=== PATIENT | male | born 1945 | race Caucasian/White ===

== ENCOUNTER → 2017-07-12 | Day surgery (SDC) | payer OTHER ==
[~2017-07-12] VITALS: Ht 177.8 cm; Wt 88.5 kg
[~2017-07-12] MED LIST: B-COMPLEX1 CAP PO; BAYER ASPIRIN R81 MG PO; BENAZEPRIL10 MG PO; CIPRO500 MG PO; DIPYRIDAMOLE50 MG PO; FISH OIL 10001000 MG PO; METFORMIN500 MG PO; OXYCODONE5 MG; PREDNISONE5 MG PO; SIMVASTATIN40 MG PO; VERAPAMIL HCL80 MG PO; VICODIN 5/500 505 MG PO
--- NOTE | ~2017-07-12 | O ---
[place], [place] OPERATIVE NOTE NAME: ADRI CHRISTY UNIT #: [id number] ROOM: DOCTOR: DANIEL THRASHER MD BIRTHDATE: [birth year] DOS: 07/12/2017 GASTROENDOSCOPIC REPORT. HISTORY OF PRESENT ILLNESS: A 72-year-old patient who has presented with chief complaint of colonic screening, undergoing investigation. Change in bowel habit, diarrhea. ALLERGIES: No known medication. FAMILY HISTORY: Noncontributory. PAST SURGICAL HISTORY: Lithotripsy, cardiac stent and abdominal aortic aneurysm. PAST MEDICAL HISTORY: Hypertension, diabetes, hypercholesterolemia, seizure. SOCIAL HISTORY: Nonsmoker, nonalcohol consumer. PROCEDURE: Todays' procedure part of investigation is colonoscopy plus snare polypectomy x 4. PREMEDICATION: Versed and Diprivan. SCOPE: Olympus folding colonoscope 10L video. REPORT: After putting the patient in the left lateral position and after application of lubricant to rectal pouch and digital examination, scope was introduced. Thereafter, under direct visualization, I advanced through the length of colon without difficulty. Two polypoid lesions from rectal pouch with snare were polypectomized. Two other polypoid lesions from proximal sigmoid colon were polypectomized with snare. Base of the cecum explored, appendiceal orifice identified, and ileocecal valve was defined. Diverticulosis was noticed. The patient extubated, tolerated procedure well. IMPRESSION: Diverticulosis of sigmoid colon, 2 polyps, snare polypectomy at proximal sigmoid colon; 2 polyps, rectal pouch, status post 2 snare polypectomy and rectal pouch. PLAN AND DISCUSSION: High fiber diet. ACTIVITY: Ad willow. FOLLOWUP: Routinely with you in office, p.r.n. visit with us in GI Clinic. Thank you very much again for your kind referral. [place], [place] OPERATIVE NOTE NAME: ADRI CHRISTY UNIT #: [id number] ROOM: DOCTOR: DANIEL THRASHER MD BIRTHDATE: [birth year] DANIEL THRASHER MD CM:OPRECORD:OPERATIVE NOTE 1120 1157 DANIEL THRASHER MD 07/12/17 1152 interface
[2017-07-12 10:37] VITALS: BP 132/51
[2017-07-12 11:14] VITALS: BP 78/49
[2017-07-12 11:29] VITALS: BP 84/42
[2017-07-12 11:44] VITALS: BP 104/56
== END | disposition home or self-care (01) ==
LOC: SDC 07-08 08:00
DX: D12.5 Benign neoplasm of sigmoid colon (principal); D12.8 Benign neoplasm of rectum; I10 Essential (primary) hypertension; E11.9 Type 2 diabetes mellitus without complications; E78.00 Pure hypercholesterolemia, unspecified; Z95.5 Presence of coronary angioplasty implant and graft; Z79.899 Other long term (current) drug therapy; I25.2 Old myocardial infarction; Z86.14 Personal history of Methicillin resistant Staphylococcus aureus infection; I72.9 Aneurysm of unspecified site; Z87.891 Personal history of nicotine dependence; Z98.890 Other specified postprocedural states; Z83.3 Family history of diabetes mellitus; Z82.49 Family history of ischemic heart disease and other diseases of the circulatory system

== ENCOUNTER → 2017-07-23 | Outpatient (CLI) | payer OTHER | END | disposition home or self-care (01) | LOC: LAB 11:43 → CT 13:00 | PROVIDERS: Internal Medicine | DX: M54.18 Radiculopathy, sacral and sacrococcygeal region (principal) ==

== ENCOUNTER → 2017-07-26 | Outpatient (CLI) | payer OTHER | END | disposition home or self-care (01) | LOC: CT 07-25 01:08 | DX: I72.3 Aneurysm of iliac artery (principal); N20.2 Calculus of kidney with calculus of ureter; M54.18 Radiculopathy, sacral and sacrococcygeal region; K80.20 Calculus of gallbladder without cholecystitis without obstruction; N28.1 Cyst of kidney, acquired; K57.30 Diverticulosis of large intestine without perforation or abscess without bleeding; K42.9 Umbilical hernia without obstruction or gangrene ==

== ENCOUNTER → 2018-04-02 | Day surgery (SDC) | payer OTHER ==
[~2018-04-02] VITALS: Ht 177.8 cm; Wt 88.5 kg
[~2018-04-02] MED LIST changes: +VITAMIN B 6 PO; +VITAMIN D-32000 UNI1 PO
--- NOTE | ~2018-04-02 | O ---
[place], [place] O[facility]ATIVE [id number] UNIT #: [id number] ROOM: DOCTOR: PEARL BAILON MD BIRTHDATE: [birth year] DOS: 04/02/2018 PREOPERATIVE DIAGNOSIS: Cataract, left eye. POSTOPERATIVE DIAGNOSIS: Cataract, left eye. OPERATION: Extracapsular cataract extraction by phacoemulsification with posterior chamber intraocular lens implantation, left eye. ANESTHESIA: Monitored standby. OPERATIVE FINDINGS AND PROCEDURE: 2% Xylocaine topical anesthetic gel was applied to the eye in the preop area. The patient was taken to the operating room and prepped and draped in the standard fashion for sterile intraocular surgery. A time out procedure was performed verifying correct patient, correct site and corrects lens with Pancho Bailon M.D. The operating microscope was swung into position and the lid speculum was inserted. Using a Yamile paracentesis blade, a paracentesis was made through clear cornea. Viscoelastic was used to fill the anterior chamber. Using a metal keratome a 2.4 mm self-sealing clear corneal cataract incision was made temporally at the limbus. Using a pre-bent 25 gauge cystotome needle, a standard continuous curvilinear capsulorrhexis was performed. The anterior capsule was removed with forceps. The lens nucleus was hydrodissected and phacoemulsified in the posterior chamber. Cortical material was removed with the irrigation aspiration hand piece and the posterior capsule was then polished with a curet under irrigation. The posterior chamber and capsular bag were filled with viscoelastic. A posterior chamber intraocular lens manufactured by: [employer], Model #[id number], and 18.0 diopters in strength were then inserted into the posterior chamber and within the capsular bag using the lens cartridge and injector system. Viscoelastic was removed using the irrigation aspiration handpiece. The anterior chamber was filled with balanced salt solution through the paracentesis. Both the paracentesis site and cataract incisions were hydrated with BSS and verified to be water-tight and self-sealing. Cefuroxime 1 mg/0.1 mL was injected into the anterior chamber through the paracentesis site. The incision checked to be water-tight using a Weck-Glory sponge. The integrity of the cataract wound and ocular tension were checked. Lid speculum and drapes were removed. The patient was transferred from the operating room to the recovery room in satisfactory condition. [place], [place] OPERATIVE NOTE NAME: ADRI CHRISTY UNIT #: [id number] ROOM: DOCTOR: PEARL BAILON MD BIRTHDATE: [birth year] PEARL BAILON MD CM:OPRECORD:OPERATIVE NOTE 1115 1139 PEARL BAILON MD 04/02/18 1137 interface
[2018-04-02 10:29] VITALS: BP 128/67
[2018-04-02 11:10] VITALS: BP 125/53
[2018-04-02 11:20] VITALS: BP 106/52
[2018-04-02 11:33] VITALS: BP 115/52
== END | disposition home or self-care (01) ==
LOC: SDC 03-28 14:00
DX: H25.812 Combined forms of age-related cataract, left eye (principal); I10 Essential (primary) hypertension; E78.00 Pure hypercholesterolemia, unspecified; Z87.442 Personal history of urinary calculi; Z86.14 Personal history of Methicillin resistant Staphylococcus aureus infection; Z98.890 Other specified postprocedural states; Z82.49 Family history of ischemic heart disease and other diseases of the circulatory system; Z87.891 Personal history of nicotine dependence

== ENCOUNTER → 2018-04-08 | Outpatient (CLI) | payer OTHER | END | disposition home or self-care (01) | LOC: US 09:00 | DX: N20.0 Calculus of kidney (principal); N18.3 Chronic kidney disease, stage 3 (moderate) ==

== ENCOUNTER → 2018-04-09 | Day surgery (SDC) | payer OTHER ==
[~2018-04-09] VITALS: Ht 177.8 cm; Wt 88.5 kg
--- NOTE | ~2018-04-09 | O ---
[place], [place] OPERATIVE NOTE NAME: ADRI CHRISTY [facility] #: [id number] UNIT #: [id number] ROOM: DOCTOR: PEARL BAILON MD BIRTHDATE: [birth year] DOS: 04/09/2018 PREOPERATIVE DIAGNOSIS: Cataract, right eye. POSTOPERATIVE DIAGNOSIS: Cataract, right eye. OPERATION: Extracapsular cataract extraction by phacoemulsification with posterior chamber intraocular lens implantation, right eye. ANESTHESIA: Monitored standby. OPERATIVE FINDINGS AND PROCEDURE: 2% Xylocaine topical anesthetic gel was applied to the eye in the preop area. The patient was taken to the operating room and prepped and draped in the standard fashion for sterile intraocular surgery. A time out procedure was performed verifying correct patient, correct site and corrects lens with Pancho Bailon M.D. The operating microscope was swung into position and the lid speculum was inserted. Using a Yamile paracentesis blade, a paracentesis was made through clear cornea. Viscoelastic was used to fill the anterior chamber. Using a metal keratome a 2.4 mm self-sealing clear corneal cataract incision was made temporally at the limbus. Using a pre-bent 25 gauge cystotome needle, a standard continuous curvilinear capsulorrhexis was performed. The anterior capsule was removed with forceps. The lens nucleus was hydrodissected and phacoemulsified in the posterior chamber. Cortical material was removed with the irrigation aspiration hand piece and the posterior capsule was then polished with a curet under irrigation. The posterior chamber and capsular bag were filled with viscoelastic. A posterior chamber intraocular lens manufactured by: [employer], Model #[id number], and 18.5 diopters in strength were then inserted into the posterior chamber and within the capsular bag using the lens cartridge and injector system. Viscoelastic was removed using the irrigation aspiration handpiece. The anterior chamber was filled with balanced salt solution through the paracentesis. Both the paracentesis site and cataract incisions were hydrated with BSS and verified to be water-tight and self-sealing. Cefuroxime 1 mg/0.1 mL was injected into the anterior chamber through the paracentesis site. The incision checked to be water-tight using a Weck-Glory sponge. The integrity of the cataract wound and ocular tension were checked. Lid speculum and drapes were removed. The patient was transferred from the operating room to the recovery room in satisfactory condition. [place], [place] OPERATIVE NOTE NAME: ADRI CHRISTY UNIT #: [id number] ROOM: DOCTOR: PEARL BAILON MD BIRTHDATE: [birth year] PEARL BAILON MD CM:OPRECORD:OPERATIVE NOTE 1203 1218 PEARL BAILON MD 04/09/18 1216 interface
[2018-04-09 09:46] VITALS: BP 124/56
[2018-04-09 10:47] VITALS: BP 97/58
[2018-04-09 11:02] VITALS: BP 96/55
[2018-04-09 11:17] VITALS: BP 117/47
== END | disposition home or self-care (01) ==
LOC: SDC 04-07 11:45
DX: E11.36 Type 2 diabetes mellitus with diabetic cataract (principal); H25.811 Combined forms of age-related cataract, right eye; I10 Essential (primary) hypertension; E78.00 Pure hypercholesterolemia, unspecified; I25.2 Old myocardial infarction; Z87.891 Personal history of nicotine dependence; Z98.890 Other specified postprocedural states; Z79.899 Other long term (current) drug therapy; Z95.5 Presence of coronary angioplasty implant and graft; Z87.442 Personal history of urinary calculi; Z83.3 Family history of diabetes mellitus; Z82.3 Family history of stroke; Z82.49 Family history of ischemic heart disease and other diseases of the circulatory system

== ENCOUNTER → 2018-05-12 | Outpatient (CLI) | payer OTHER ==
[2018-05-12 13:03] LABS: BILIRUBIN NEGATIVE (NEGATIVE); BLOOD 3+ (NEGATIVE); CLARITY CLOUDY (CLEAR); COLOR YELLOW (YELLOW); GLUCOSE NEGATIVE (NEGATIVE); KETONE NEGATIVE (NEGATIVE); LEUKO ESTERASE TRACE (NEGATIVE); NITRITE NEGATIVE (NEGATIVE); SPECIFIC GRAVITY 1.025 (1.005-1.030); UROBILINOGEN 0.2 E.U./dl (0.2-1.0)
[2018-05-12 13:13] LABS: BASO # 0.1 10*3/uL (0.0-0.1); EOS # 0.4 10*3/uL (0.0-0.4); EOS % 5.9 % (1.0-4.0); HEMATOCRIT 38.8 % (42.0-52.0); HEMOGLOBIN 12.2 g/dl (14.0-18.0); LYMPH # 1.7 10*3/uL (1.3-4.4); MEAN CELL VOLUME 103.2 fl (80.0-94.0); MEAN CORPUSCULAR HGB 32.4 pg (27.0-31.0); MEAN CORPUSCULAR HGB CONC 31.4 g/dl (33.0-37.0); MEAN PLATELET VOLUME 10.2 fl (9.6-12.3); MONO # 0.6 10*3/uL (0.1-1.0); MONO % 9.7 % (3.0-9.0); NEUT # 3.3 10*3/uL (2.3-7.9); NEUT % 54.9 % (47.0-73.0); PLATELET COUNT AUTOMATED 197 10*3/uL (130-400); RED BLOOD COUNT 3.76 10*6/uL (4.50-5.90); RED CELL DISTRI WIDTH 14.6 % (0-14.5); WHITE BLOOD COUNT 6.1 10*3/uL (4.8-10.8)
[2018-05-12 13:16] LABS: RBC TNTC rbc/hpf (0-2)
[2018-05-12 13:43] LABS: CREATININE 3.18 mg/dL (0.70-1.30); POTASSIUM 5.7 mmol/L (3.5-5.1); TOTAL PROTEIN 8.5 gm/dL (6.4-8.2)
== END | disposition home or self-care (01) ==
LOC: LAB 12:28
PROVIDERS: Urology
DX: N40.1 Benign prostatic hyperplasia with lower urinary tract symptoms (principal); D40.0 Neoplasm of uncertain behavior of prostate; N20.0 Calculus of kidney; R31.9 Hematuria, unspecified

== ENCOUNTER → 2018-05-19 | Outpatient (CLI) | payer OTHER | END | disposition home or self-care (01) | LOC: CT 05-17 10:00 | DX: K57.30 Diverticulosis of large intestine without perforation or abscess without bleeding (principal); N20.0 Calculus of kidney; Z96.0 Presence of urogenital implants ==

== ENCOUNTER → 2018-06-24 | Outpatient (CLI) | payer OTHER | END | disposition home or self-care (01) | LOC: RAD 14:17 | DX: N20.0 Calculus of kidney (principal); Z96.0 Presence of urogenital implants ==

== ENCOUNTER → 2018-07-07 | Outpatient (CLI) | payer OTHER | END | disposition home or self-care (01) | LOC: CT 10:13 | DX: N20.0 Calculus of kidney (principal); N20.1 Calculus of ureter; K80.20 Calculus of gallbladder without cholecystitis without obstruction; I71.4 Abdominal aortic aneurysm, without rupture ==

== ENCOUNTER → 2018-08-13 | Outpatient (CLI) | payer OTHER | END | disposition home or self-care (01) | LOC: RAD 11:26 | DX: N20.0 Calculus of kidney (principal) ==

== ENCOUNTER → 2018-09-30 | Outpatient (CLI) | payer OTHER ==
[2018-09-30 11:04] LABS: BASO # 0.1 10*3/uL (0.0-0.1); BASO % 1.1 % (0.0-1.0); EOS # 0.4 10*3/uL (0.0-0.4); HEMATOCRIT 37.3 % (42.0-52.0); HEMOGLOBIN 11.7 g/dl (14.0-18.0); LYMPH % 30.1 % (27.0-41.0); MEAN CELL VOLUME 103.3 fl (80.0-94.0); MEAN CORPUSCULAR HGB 32.4 pg (27.0-31.0); MEAN CORPUSCULAR HGB CONC 31.4 g/dl (33.0-37.0); MEAN PLATELET VOLUME 10.7 fl (9.6-12.3); MONO # 0.6 10*3/uL (0.1-1.0); MONO % 8.8 % (3.0-9.0); NEUT # 3.5 10*3/uL (2.3-7.9); NEUT % 53.7 % (47.0-73.0); PLATELET COUNT AUTOMATED 199 10*3/uL (130-400); RED BLOOD COUNT 3.61 10*6/uL (4.50-5.90); RED CELL DISTRI WIDTH 13.8 % (0-14.5); WHITE BLOOD COUNT 6.5 10*3/uL (4.8-10.8)
[2018-09-30 11:31] LABS: ALBUMIN 3.5 gm/dl (3.1-4.5); CREATININE 2.21 mg/dL (0.70-1.30); POTASSIUM 4.7 mmol/L (3.5-5.1); TOTAL PROTEIN 7.5 gm/dL (6.4-8.2)
[2018-09-30 12:35] LABS: VITAMIN D, 25-HYDROXY 41.6 ng/mL (30-100)
== END | disposition home or self-care (01) ==
LOC: LAB 10:44
PROVIDERS: Internal Medicine
DX: Z12.5 Encounter for screening for malignant neoplasm of prostate (principal); I10 Essential (primary) hypertension; E11.9 Type 2 diabetes mellitus without complications; E55.9 Vitamin D deficiency, unspecified

== ENCOUNTER → 2019-02-25 | Outpatient (CLI) | payer OTHER ==
[2019-02-25 11:47] LABS: BILIRUBIN NEGATIVE (NEGATIVE); BLOOD TRACE-INTACT (NEGATIVE); CLARITY CLEAR (CLEAR); COLOR YELLOW (YELLOW); GLUCOSE NEGATIVE (NEGATIVE); KETONE NEGATIVE (NEGATIVE); LEUKO ESTERASE TRACE (NEGATIVE); NITRITE NEGATIVE (NEGATIVE); UROBILINOGEN 0.2 E.U./dl (0.2-1.0)
[2019-02-25 11:52] LABS: BASO # 0.1 10*3/uL (0.0-0.1); BASO % 1.1 % (0.0-1.0); EOS # 0.5 10*3/uL (0.0-0.4); HEMATOCRIT 40.6 % (42.0-52.0); HEMOGLOBIN 12.5 g/dl (14.0-18.0); LYMPH # 2.2 10*3/uL (1.3-4.4); LYMPH % 26.5 % (27.0-41.0); MEAN CELL VOLUME 101.8 fl (80.0-94.0); MEAN CORPUSCULAR HGB 31.3 pg (27.0-31.0); MEAN CORPUSCULAR HGB CONC 30.8 g/dl (33.0-37.0); MEAN PLATELET VOLUME 10.4 fl (9.6-12.3); MONO # 0.7 10*3/uL (0.1-1.0); MONO % 8.2 % (3.0-9.0); NEUT # 4.9 10*3/uL (2.3-7.9); NEUT % 57.8 % (47.0-73.0); PLATELET COUNT AUTOMATED 243 10*3/uL (130-400); RED BLOOD COUNT 3.99 10*6/uL (4.50-5.90); RED CELL DISTRI WIDTH 14.7 % (0-14.5); WHITE BLOOD COUNT 8.5 10*3/uL (4.8-10.8)
[2019-02-25 12:01] LABS: BACTERIA 1+; RBC 16-20 rbc/hpf (0-2); WBC 16-20 wbc/hpf (0-5)
[2019-02-25 12:17] LABS: ALBUMIN 3.8 gm/dl (3.1-4.5); CREATININE 1.99 mg/dL (0.70-1.30); PHOSPHOROUS 3.3 mg/dL (2.5-4.9)
[2019-02-25 12:41] LABS: FERRITIN 128.5 ng/mL (22.0-322.0)
[2019-02-25 12:42] LABS: PTH INTACT 48.7 pg/mL (18.5-88.0)
[2019-02-25 14:40] LABS: VITAMIN D, 25-HYDROXY 47.1 ng/mL (30-100)
== END | disposition home or self-care (01) ==
LOC: LAB 11:13
PROVIDERS: Internal Medicine Nephrology
DX: N18.4 Chronic kidney disease, stage 4 (severe) (principal); D63.1 Anemia in chronic kidney disease; N25.81 Secondary hyperparathyroidism of renal origin; Z79.899 Other long term (current) drug therapy

== ENCOUNTER → 2019-09-14 | Outpatient (CLI) | payer OTHER ==
[2019-09-14 13:24] LABS: BILIRUBIN NEGATIVE (NEGATIVE); BLOOD 1+ (NEGATIVE); CLARITY SL CLOUDY (CLEAR); COLOR YELLOW (YELLOW); GLUCOSE 1+ (NEGATIVE); KETONE NEGATIVE (NEGATIVE); LEUKO ESTERASE 1+ (NEGATIVE); NITRITE NEGATIVE (NEGATIVE); SPECIFIC GRAVITY 1.025 (1.005-1.030); UROBILINOGEN 0.2 E.U./dl (0.2-1.0)
[2019-09-14 13:33] LABS: BACTERIA 2+; WBC TNTC wbc/hpf (0-5)
[2019-09-14 13:35] LABS: BASO # 0.1 10*3/uL (0.0-0.1); BASO % 1.4 % (0.0-1.0); EOS # 0.4 10*3/uL (0.0-0.4); EOS % 5.8 % (1.0-4.0); HEMOGLOBIN 12.3 g/dl (14.0-18.0); LYMPH # 1.4 10*3/uL (1.3-4.4); LYMPH % 21.2 % (27.0-41.0); MEAN CELL VOLUME 104.8 fl (80.0-94.0); MEAN CORPUSCULAR HGB 33.1 pg (27.0-31.0); MEAN CORPUSCULAR HGB CONC 31.5 g/dl (33.0-37.0); MEAN PLATELET VOLUME 10.8 fl (9.6-12.3); MONO # 0.6 10*3/uL (0.1-1.0); MONO % 8.4 % (3.0-9.0); NEUT # 4.1 10*3/uL (2.3-7.9); NEUT % 62.7 % (47.0-73.0); PLATELET COUNT AUTOMATED 223 10*3/uL (130-400); RED BLOOD COUNT 3.72 10*6/uL (4.50-5.90); RED CELL DISTRI WIDTH 14.4 % (0-14.5); WHITE BLOOD COUNT 6.5 10*3/uL (4.8-10.8)
[2019-09-14 13:59] LABS: ALBUMIN 3.4 gm/dl (3.1-4.5); CREATININE 2.08 mg/dL (0.70-1.30); PHOSPHOROUS 2.7 mg/dL (2.5-4.9); POTASSIUM 4.7 mmol/L (3.5-5.1)
[2019-09-14 14:24] LABS: FERRITIN 131.2 ng/mL (22.0-322.0); PTH INTACT 56.1 pg/mL (18.5-88.0); VITAMIN D, 25-HYDROXY 39.7 ng/mL (30-100)
== END | disposition home or self-care (01) ==
LOC: LAB 12:40
PROVIDERS: Internal Medicine Nephrology
DX: N25.81 Secondary hyperparathyroidism of renal origin (principal); D63.1 Anemia in chronic kidney disease; N18.3 Chronic kidney disease, stage 3 (moderate); Z79.899 Other long term (current) drug therapy

== ENCOUNTER → 2019-09-17 | Outpatient (CLI) | payer OTHER ==
--- NOTE | ~2019-09-17 | EKG ---
[place], [place] ELECTROCARDIOGRAM REPORT NAME: ADRI CHRISTY UNIT #: [id number] ROOM: DOCTOR: TY DRAFT REPORT BIRTHDATE: [birth year] [facility] Test Date: 2019-09-17 Test Time: 12:40:33 Pat Name: ADRI CHRISTY Department: Room: Gender: Rental Sales Representative: : 1945 Requested By: JUANA BRANDON Order Number: [id number] Reading MD: Melony Park MD Measurements Intervals [place] Rate: 68 P: 50 VT: 200 QRS: 62 QRSD: 97 T: -86 QT: 407 QTc: 433 Interpretive Statements Sinus rhythm Multiform ventricular premature complexes Probable inferior infarct, age indeterminate Consider anterior infarct Electronically Signed On 09-19-2019 10:31:31 PDT by Melony Park MD CM:EKGRPT:ELECTROCARDIOGRAM REPORT 1240 1031 JUANA CRAWFORD DRAFT REPORT JUANA BRANDON
[2019-09-17 12:51] LABS: BASO # 0.1 10*3/uL (0.0-0.1); BASO % 0.7 % (0.0-1.0); EOS # 0.3 10*3/uL (0.0-0.4); EOS % 3.4 % (1.0-4.0); HEMATOCRIT 39.9 % (42.0-52.0); HEMOGLOBIN 12.7 g/dl (14.0-18.0); LYMPH # 1.5 10*3/uL (1.3-4.4); LYMPH % 20.8 % (27.0-41.0); MEAN CELL VOLUME 102.6 fl (80.0-94.0); MEAN CORPUSCULAR HGB 32.6 pg (27.0-31.0); MEAN CORPUSCULAR HGB CONC 31.8 g/dl (33.0-37.0); MEAN PLATELET VOLUME 10.5 fl (9.6-12.3); MONO # 0.5 10*3/uL (0.1-1.0); MONO % 6.9 % (3.0-9.0); NEUT % 67.8 % (47.0-73.0); PLATELET COUNT AUTOMATED 211 10*3/uL (130-400); RED BLOOD COUNT 3.89 10*6/uL (4.50-5.90); RED CELL DISTRI WIDTH 14.3 % (0-14.5); WHITE BLOOD COUNT 7.4 10*3/uL (4.8-10.8)
[2019-09-17 13:18] LABS: CREATININE 2.09 mg/dL (0.70-1.30); POTASSIUM 4.6 mmol/L (3.5-5.1)
[2019-09-17 13:19] LABS: ACT PARTIAL THROMBO TIME 23.9 SECONDS (20.0-32.1); INTERNATIONAL NORM RATIO 0.9 (2.0-3.5)
== END | disposition home or self-care (01) ==
LOC: LAB 12:06 → EDSTATUS 12:07
PROVIDERS: Specialist
DX: Z01.818 Encounter for other preprocedural examination (principal); R59.1 Generalized enlarged lymph nodes; R91.1 Solitary pulmonary nodule; Z86.2 Personal history of diseases of the blood and blood-forming organs and certain disorders involving the immune mechanism

== ENCOUNTER → 2019-12-01 | Outpatient (CLI) | payer OTHER ==
[2019-12-01 09:23] LABS: BASO # 0.1 10*3/uL (0.0-0.1); BASO % 0.9 % (0.0-1.0); EOS # 0.5 10*3/uL (0.0-0.4); EOS % 7.8 % (1.0-4.0); HEMATOCRIT 37.2 % (42.0-52.0); HEMOGLOBIN 11.8 g/dl (14.0-18.0); LYMPH # 1.7 10*3/uL (1.3-4.4); LYMPH % 25.8 % (27.0-41.0); MEAN CELL VOLUME 101.6 fl (80.0-94.0); MEAN CORPUSCULAR HGB 32.2 pg (27.0-31.0); MEAN CORPUSCULAR HGB CONC 31.7 g/dl (33.0-37.0); MEAN PLATELET VOLUME 10.4 fl (9.6-12.3); MONO # 0.7 10*3/uL (0.1-1.0); MONO % 11.3 % (3.0-9.0); NEUT # 3.5 10*3/uL (2.3-7.9); NEUT % 53.6 % (47.0-73.0); PLATELET COUNT AUTOMATED 214 10*3/uL (130-400); RED BLOOD COUNT 3.66 10*6/uL (4.50-5.90); RED CELL DISTRI WIDTH 14.1 % (0-14.5); WHITE BLOOD COUNT 6.6 10*3/uL (4.8-10.8)
[2019-12-01 09:54] LABS: ALBUMIN 3.3 gm/dl (3.1-4.5); CREATININE 2.3 mg/dL (0.70-1.30); POTASSIUM 4.7 mmol/L (3.5-5.1); TOTAL PROTEIN 7.4 gm/dL (6.4-8.2)
== END | disposition home or self-care (01) ==
LOC: LAB 09:02
PROVIDERS: Nurse Practitioner Family
DX: Z12.5 Encounter for screening for malignant neoplasm of prostate (principal); I10 Essential (primary) hypertension; R53.83 Other fatigue

== ENCOUNTER 2019-12-12 19:52 | Inpatient (IN) | payer OTHER ==
[~2019-12-12] VITALS: Ht 175.3 cm; Wt 84.5 kg
[2019-12-12 20:00] VITALS: BP 150/75
--- NOTE | 2019-12-12 20:15 | NUR ---
PT PLACED ON 2 LNC PER REQUEST.
--- NOTE | 2019-12-12 20:55 | NUR ---
DIRECTOR OF INTELLIGENCE TUAN AT BEDSIDE TO SPEAK WITH PT/
[2019-12-12 20:56] LABS: HEMATOCRIT 32.5 % (42.0-52.0); HEMOGLOBIN 10.5 g/dl (14.0-18.0); MEAN CELL VOLUME 100.6 fl (80.0-94.0); MEAN CORPUSCULAR HGB 32.5 pg (27.0-31.0); MEAN CORPUSCULAR HGB CONC 32.3 g/dl (33.0-37.0); MEAN PLATELET VOLUME 12.4 fl (9.6-12.3); PLATELET COUNT AUTOMATED 76 10*3/uL (130-400); RED BLOOD COUNT 3.23 10*6/uL (4.50-5.90); RED CELL DISTRI WIDTH 14.3 % (0-14.5); WHITE BLOOD COUNT 6.9 10*3/uL (4.8-10.8)
[2019-12-12 21:03] LABS: ACT PARTIAL THROMBO TIME 25.6 SECONDS (20.0-32.1)
--- NOTE | 2019-12-12 21:10 | NUR ---
clients alcohol is still too high to assess, i will see him in the am when its is below 80.
--- NOTE | 2019-12-12 21:17 | NUR ---
psychiatric assessment: client is pleasant and cooperative, he is a &ox4, he has no psychosis. he presents after his was concerned that he was more depressed since starting chemo on saturday and he also had some prednisone that affected his sugar. he had a suicide gesture 20 years ago where he had cut his wrist and he said that it was pressure at work. client said he is not feeling that way now, he denies any suicidal ideation , he said that he would tell me if he felt that way. he said that he felt so antsy today and he kep thinking that he couldnt sit and he kept pacing and sitting down and jumping up. he said that he just feels on edge. he took a xanax last night and slept 4 hours and then he took another at 5 pm, but it didnt help very much. this client would not meet criteria for an inpatient psych admit, i spoke with dr peter and his nurse. dr peter is going to give him something for his anxiety, and she is possible going to admit him to the medical floor.
[2019-12-12 21:21] LABS: CREATININE 2.22 mg/dL (0.70-1.30); POTASSIUM 4.3 mmol/L (3.5-5.1); TOTAL PROTEIN 6.2 gm/dL (6.4-8.2)
[2019-12-12 21:25] LABS: TROPONIN I 0.295 ng/ml (<0.045)
[2019-12-12 21:27] LABS: OVALOCYTES FEW; PLATELET SUFFICIENCY NORMAL (NORMAL); TOTAL CELLS COUNTED 100 #CELLS
[2019-12-12 21:33] LABS: ACETAMINOPHEN (TYLENOL) < 5.0 ug/ml (10-30); ETHYL ALCOHOL < 3.0 mg/dl (<3)
[2019-12-12 21:58] LABS: BILIRUBIN NEGATIVE (NEGATIVE); BLOOD 3+ (NEGATIVE); CLARITY SL CLOUDY (CLEAR); COLOR YELLOW (YELLOW); GLUCOSE 2+ (NEGATIVE); KETONE NEGATIVE (NEGATIVE); LEUKO ESTERASE TRACE (NEGATIVE); NITRITE NEGATIVE (NEGATIVE); UROBILINOGEN 0.2 E.U./dl (0.2-1.0)
[2019-12-12 22:14] LABS: URINE AMPHETAMINES < 1000 (1000ng/ml); URINE BARBITURATES < 200 (200ng/ml); URINE BENZODIAZEPINES < 200 (200ng/ml); URINE CANNABINOIDS (THC) < 50 (50ng/ml); URINE COCAINE < 300 (300ng/ml); URINE METHADONE < 300 (300ng/ml); URINE OPIATES < 300 (300ng/ml)
[2019-12-12 22:16] LABS: URINE PHENCYCLIDINE < 25 (25ng/ml)
[2019-12-12 22:26] LABS: RBC 21-30 rbc/hpf (0-2)
--- NOTE | 2019-12-12 23:37 | NUR ---
TROPONIN 0.301
--- NOTE | 2019-12-13 00:45 | NUR ---
REPORT TO OMI CARLISLE, OMI CARLISLE TO ED FOR PT TRANSPORT TO UNIT
[2019-12-13 01:00] VITALS: BP 143/63
--- NOTE | 2019-12-13 01:00 | NUR ---
A 74, admitted to , under the services of Dr. ROBERTO ZURITA,ABDIRAHMAN Vincent with a diagnosis of SOB,CKD.ANXIETY DISORDER. Chief complaint is ANXIETY, FEELING STRANGE Patient arrived via from ER. Monitor applied. Initial assessment completed. Vital signs taken and recorded. DR. ROBERTO ZURITA,ABDIRAHMAN Vincent notified of admission to the unit. Orders received. See assessment for past medical history, medications and allergies. Patient and/or family oriented to unit. [facility] ICCU visitation policy reviewed. Clothing/patient valuable form completed. OMI CALHOUN
[2019-12-13] MEDS ORDERED: ALLOPURINOL100 MG PO (01:54)
[2019-12-13] MEDS ORDERED: PROCHLORPERAZIN10 MG PO (01:55)
[2019-12-13] MEDS ORDERED: VERAPAMIL HCL80 MG PO (01:56)
[2019-12-13] MEDS ORDERED: ALPRAZOLAM0.25 M2 PO (01:57)
[2019-12-13] MEDS ORDERED: BASAG SOL SC (02:00)
--- NOTE | 2019-12-13 02:50 | NUR ---
CALL PLCED TO DR. GUERRA, HE ADVISED THAT DR. 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
--- NOTE | 2019-12-13 07:28 | NUR ---
CALL PLACED TO DR. DARNELL ADVISED OF CONSULT, REVIEWED TROPONIN LEVELS WELL RECENT EPISODES OF VTAC, HE VERSED UNDERSTANDING AND STATED HE WILL BE IN
[2019-12-13 08:00] VITALS: BP 148/64
--- NOTE | 2019-12-13 08:05 | NUR ---
[facility] CALLED WITH OK TO TRANSFER PT.
--- NOTE | 2019-12-13 08:12 | NUR ---
CALLED DR. MEJIA AWARE DR. HENNING WANTS PT TRANFERRED TO [place]. DISCHARGE ORDER TAKEN.
--- NOTE | 2019-12-13 08:20 | NUR ---
PT RESTIN GIN BED. PT IS REFUSING TO GO TO [facility] AT THIS TIME. HE SAYS HE IS BETTER HE THINKS IT WAS ALL ANXIETY. HE ALSO STATES HE HAS APPOINTMENT FOR DR. GUERRA TOMORROW AND HE WANTS TO GO HOME TODAY AND SEE HIM TOMORROW. ALSO STATES HE ISN'T HAVING ANY PAIN OR DIDN'T HAVE ANY PAIN. DAUGHTER AT HIS SIDE. EXPLAINED REASON FOR TRANSFERRED. HE STILL REFUSES TO GO.
--- NOTE | 2019-12-13 08:21 | NUR ---
DR. MEJIA CALLED AND AWARE PT REFUSED TO BE SENT AND HE WISHES TO GO HOME TODAY.
--- NOTE | 2019-12-13 08:30 | NUR ---
PT TOLERATED ROUTINE MED WITH NO PROBLEM. NO C/O AT THIS TIME. CALL LIGHT IN REACH. NO SOB NOTED. SEE SHIFT ASSESSMENT.
--- NOTE | 2019-12-13 08:40 | NUR ---
CALLED DR. HENNING AWARE PT REFUSED TO BE TRANSFERRED.
--- NOTE | 2019-12-13 10:25 | NUR ---
Veneer Taping Machine Operator in to talk to patient. Patient states lives at HOME with . There are BASEMENT steps in the home. Physician: BENEDICTO [facility] [place] [facility] NONE Patient's level of ADLs: INDEPENDENT Patient has working utilities: YES DME: NONE Follow-up physician's appointment after d/c: PREFERS TO MAKE OWN, STATES HE THINKS HE HAS ONE THIS WEEK WITH HER. Does patient want to access PORTAL?: NO Discharge plan PT LIVES AT HOME WITH HIS AND IS INDEPENDENT IN HIS CARE. STATES HE RECENTLY STARTED CHEMO FOR LYMPHOMA, WITH FIRST DOES BEING LAST SATURDAY AND NEXT ONE SCHEDULED 12/28 IN [place]. HE ALSO STATES HE HAS APPOINTMENT WITH DR GUERRA TOMORROW. DENIES ANY NEEDS AT HOME. WILL HAVE A RIDE HOME. DAUGHTER AT BEDSIDE AND VERIFIED ABOVE. . SHAREE YOUNG
--- NOTE | 2019-12-13 10:54 | NUR ---
DR. HENNING CALLED, HAVE PT DO ECHO IF NOT DONE IN 6 MONTHS. IF PT STILL HERE IN AM TRANFER TO DR. GUERRA IN AM AND CALL HIM.
[2019-12-13 12:00] VITALS: BP 123/55
--- NOTE | 2019-12-13 12:26 | NUR ---
NOITIFIED OF 7 BEAT RUN OF VTACH, NEW ORDERS RECIEVED AND VERIFIED BACK
--- NOTE | 2019-12-13 12:50 | NUR ---
TOLERATED LOPRESSOR. NO C/O AT THIS TIME. CALL LIGHT IN REACH.
[2019-12-13] MEDS ORDERED: LOPRESSOR25 MG PO (14:17)
--- NOTE | 2019-12-13 15:16 | NUR ---
Discharge instructions reviewed with patient/family. Patient receptive and verbalizes understanding. Follow-up care arranged. Written instructions given to patient/family. HEPLOCK REMOVED 2X2 APPLIED. MONITOR REMOVED. ESCORTED VIA WHEELCHAIR FOR DISCHARGE. ZAHEER ALEXANDRE
== END 2019-12-13 15:16 | disposition home or self-care (01) | DRG 311 ==
LOC: ED 19:52 → EDHOLD 23:02 → 4E 12-13 00:06
PROVIDERS: Emergency Medicine Emergency Medical Services; ADMIT Internal Medicine
DX: I24.8 Other forms of acute ischemic heart disease (principal); I47.2 Ventricular tachycardia; C85.90 Non-Hodgkin lymphoma, unspecified, unspecified site; F41.1 Generalized anxiety disorder; N18.3 Chronic kidney disease, stage 3 (moderate); I12.9 Hypertensive chronic kidney disease with stage 1 through stage 4 chronic kidney disease, or unspecified chronic kidney disease; G40.909 Epilepsy, unspecified, not intractable, without status epilepticus; E78.2 Mixed hyperlipidemia; I25.10 Atherosclerotic heart disease of native coronary artery without angina pectoris; E11.9 Type 2 diabetes mellitus without complications; Z53.20 Procedure and treatment not carried out because of patient's decision for unspecified reasons; Z88.2 Allergy status to sulfonamides; Z95.820 Peripheral vascular angioplasty status with implants and grafts; Z79.4 Long term (current) use of insulin

== ENCOUNTER → 2020-04-14 | Outpatient (CLI) | payer OTHER ==
[~2020-04-14] MED LIST changes: +ALLOPURINOL100 MG PO; +ALPRAZOLAM0.25 M2 PO; +BASAG SOL SC; +LOPRESSOR25 MG PO; +PROCHLORPERAZIN10 MG PO
== END | disposition home or self-care (01) ==
LOC: NM 04-13 10:00
DX: M46.98 Unspecified inflammatory spondylopathy, sacral and sacrococcygeal region (principal); M25.50 Pain in unspecified joint; M54.5 Low back pain

== ENCOUNTER → 2020-04-21 | Outpatient (CLI) | payer OTHER | END | disposition home or self-care (01) | LOC: RAD 13:10 | DX: Z01.818 Encounter for other preprocedural examination (principal); J98.11 Atelectasis; J90 Pleural effusion, not elsewhere classified; M89.8X5 Other specified disorders of bone, thigh; J32.0 Chronic maxillary sinusitis; I70.8 Atherosclerosis of other arteries; R94.8 Abnormal results of function studies of other organs and systems; Z95.828 Presence of other vascular implants and grafts ==

== ENCOUNTER → 2020-05-04 | Outpatient (CLI) | payer OTHER ==
[2020-05-04 14:30] LABS: HEMATOCRIT 25.4 % (42.0-52.0); MEAN CELL VOLUME 109.5 fl (80.0-94.0); MEAN CORPUSCULAR HGB 34.1 pg (27.0-31.0); MEAN CORPUSCULAR HGB CONC 31.1 g/dl (33.0-37.0); MEAN PLATELET VOLUME 11.7 fl (9.6-12.3); PLATELET COUNT AUTOMATED 111 10*3/uL (130-400); RED BLOOD COUNT 2.32 10*6/uL (4.50-5.90); RED CELL DISTRI WIDTH 23.2 % (0-14.5); WHITE BLOOD COUNT 5.2 10*3/uL (4.8-10.8)
[2020-05-04 14:33] LABS: URINE CREATININE RANDOM 53.2 mg/dL
[2020-05-04 14:47] LABS: ALBUMIN 2.9 gm/dl (3.1-4.5); CREATININE 1.78 mg/dL (0.70-1.30); POTASSIUM 4.5 mmol/L (3.5-5.1)
[2020-05-04 14:54] LABS: TOTAL CELLS COUNTED 100 #CELLS
[2020-05-04 14:55] LABS: MICROCYTOSIS SLIGHT; PLATELET SUFFICIENCY LOW (NORMAL); POLYCHROMASIA SLIGHT
[2020-05-04 14:56] LABS: FERRITIN 509.2 ng/mL (22.0-322.0); VITAMIN D, 25-HYDROXY 28.4 ng/mL (30-100)
[2020-05-04 15:24] LABS: BILIRUBIN NEGATIVE (NEGATIVE); BLOOD NEGATIVE (NEGATIVE); CLARITY CLEAR (CLEAR); COLOR YELLOW (YELLOW); GLUCOSE NEGATIVE (NEGATIVE); KETONE NEGATIVE (NEGATIVE); LEUKO ESTERASE 2+ (NEGATIVE); NITRITE NEGATIVE (NEGATIVE); SPECIFIC GRAVITY 1.005 (1.005-1.030); UROBILINOGEN 0.2 E.U./dl (0.2-1.0)
[2020-05-04 16:27] LABS: BACTERIA 1+; EPITHELIAL CELLS 0-2; MUCOUS TRACE; RBC 0-2 rbc/hpf (0-2); WBC TNTC wbc/hpf (0-5)
== END | disposition home or self-care (01) ==
LOC: LAB 13:31
PROVIDERS: Internal Medicine Nephrology
DX: J18.9 Pneumonia, unspecified organism (principal); N18.3 Chronic kidney disease, stage 3 (moderate); D63.1 Anemia in chronic kidney disease; N25.81 Secondary hyperparathyroidism of renal origin; Z79.899 Other long term (current) drug therapy

== ENCOUNTER → 2020-05-20 | Outpatient (CLI) | payer OTHER | END | disposition home or self-care (01) | LOC: CT 01:46 | DX: J18.9 Pneumonia, unspecified organism (principal) ==

== ENCOUNTER → 2020-08-10 | Outpatient (CLI) | payer OTHER ==
[2020-08-10 13:54] LABS: BASO % 0.5 % (0.0-1.0); EOS # 0.1 10*3/uL (0.0-0.4); HEMATOCRIT 34.4 % (42.0-52.0); LYMPH # 0.9 10*3/uL (1.3-4.4); MEAN CELL VOLUME 100.9 fl (80.0-94.0); MEAN CORPUSCULAR HGB 30.8 pg (27.0-31.0); MEAN CORPUSCULAR HGB CONC 30.5 g/dl (33.0-37.0); MEAN PLATELET VOLUME 10.9 fl (9.6-12.3); MONO # 0.5 10*3/uL (0.1-1.0); MONO % 8.2 % (3.0-9.0); NEUT # 4.4 10*3/uL (2.3-7.9); NEUT % 73.8 % (47.0-73.0); PLATELET COUNT AUTOMATED 114 10*3/uL (130-400); RED BLOOD COUNT 3.41 10*6/uL (4.50-5.90); RED CELL DISTRI WIDTH 18.2 % (0-14.5)
[2020-08-10 14:15] LABS: ALBUMIN 3.2 gm/dl (3.1-4.5); CREATININE 1.97 mg/dL (0.70-1.30); POTASSIUM 4.4 mmol/L (3.5-5.1); TOTAL PROTEIN 7.2 gm/dL (6.4-8.2)
== END | disposition home or self-care (01) ==
LOC: LAB 12:55
PROVIDERS: ATTEND Urology
DX: Z12.5 Encounter for screening for malignant neoplasm of prostate (principal); I95.9 Hypotension, unspecified; R53.83 Other fatigue; D64.9 Anemia, unspecified; D40.0 Neoplasm of uncertain behavior of prostate

== ENCOUNTER 2020-10-06 17:18 | Inpatient (IN) | payer OTHER ==
[~2020-10-06] VITALS: Ht 175.2 cm; Wt 68.0 kg
[~2020-10-06 17:18] MED LIST changes: +VERAPAMIL HCL40 MG PO
[2020-10-06 17:33] VITALS: BP 130/82
[2020-10-06 18:21] LABS: HEMATOCRIT 36.2 % (42.0-52.0); MEAN CELL VOLUME 99.5 fl (80.0-94.0); MEAN CORPUSCULAR HGB 29.4 pg (27.0-31.0); MEAN CORPUSCULAR HGB CONC 29.6 g/dl (33.0-37.0); MEAN PLATELET VOLUME 11.3 fl (9.6-12.3); PLATELET COUNT AUTOMATED 129 10*3/uL (130-400); RED BLOOD COUNT 3.64 10*6/uL (4.50-5.90); RED CELL DISTRI WIDTH 18.8 % (0-14.5); WHITE BLOOD COUNT 6.2 10*3/uL (4.8-10.8)
[2020-10-06 18:41] LABS: ALBUMIN 3.4 gm/dl (3.1-4.5); ALKALINE PHOSPHATASE 66 U/L (45-117); BUN 33 mg/dl (7-24); CHLORIDE 101 mmol/L (98-107); CREATININE 2.43 mg/dL (0.70-1.30); POTASSIUM 4.2 mmol/L (3.5-5.1); SGOT/AST 20 IU/L (3-35); SGPT/ALT 21 U/L (12-78); SODIUM 136 mmol/L (136-145); TOTAL PROTEIN 7.4 gm/dL (6.4-8.2)
[2020-10-06 18:43] LABS: TOTAL CELLS COUNTED 100 #CELLS
[2020-10-06 18:44] LABS: PLATELET SUFFICIENCY LOW (NORMAL)
[2020-10-06 18:45] LABS: BURR CELLS FEW; OVALOCYTES FEW
[2020-10-06 18:48] LABS: ETHYL ALCOHOL < 3.0 mg/dl (<3)
[2020-10-06 19:58] LABS: BILIRUBIN Negative (Negative); BLOOD 2+ (Negative); CLARITY Clear (Clear); COLOR Yellow (Yellow); GLUCOSE Negative (Negative); KETONE Negative (Negative); LEUKO ESTERASE 3+ (Negative); NITRITE Negative (Negative); UROBILINOGEN 0.2 E.U./dl (0.0-1.0)
[2020-10-06 20:11] LABS: URINE AMPHETAMINES < 1000 (1000ng/ml); URINE BARBITURATES < 200 (200ng/ml); URINE BENZODIAZEPINES < 200 (200ng/ml); URINE CANNABINOIDS (THC) < 50 (50ng/ml); URINE COCAINE < 300 (300ng/ml); URINE METHADONE < 300 (300ng/ml); URINE OPIATES < 300 (300ng/ml)
[2020-10-06 20:16] LABS: WBC 16-20 wbc/hpf (0-5)
[2020-10-06 20:17] LABS: BACTERIA TRACE
[2020-10-06 20:31] LABS: URINE PHENCYCLIDINE < 25 (25ng/ml)
[2020-10-06 23:00] VITALS: BP 101/63
[2020-10-07 00:29] VITALS: BP 101/63
[2020-10-07 06:11] LABS: BASO % 0.2 % (0.0-1.0); EOS # 0.2 10*3/uL (0.0-0.4); EOS % 3.8 % (1.0-4.0); HEMATOCRIT 35.8 % (42.0-52.0); LYMPH # 0.8 10*3/uL (1.3-4.4); LYMPH % 16.3 % (27.0-41.0); MEAN CELL VOLUME 98.4 fl (80.0-94.0); MEAN CORPUSCULAR HGB 29.9 pg (27.0-31.0); MEAN CORPUSCULAR HGB CONC 30.4 g/dl (33.0-37.0); MEAN PLATELET VOLUME 11.2 fl (9.6-12.3); MONO # 0.4 10*3/uL (0.1-1.0); MONO % 9.1 % (3.0-9.0); NEUT # 3.3 10*3/uL (2.3-7.9); NEUT % 70.4 % (47.0-73.0); PLATELET COUNT AUTOMATED 131 10*3/uL (130-400); RED BLOOD COUNT 3.64 10*6/uL (4.50-5.90); RED CELL DISTRI WIDTH 18.8 % (0-14.5); WHITE BLOOD COUNT 4.7 10*3/uL (4.8-10.8)
[2020-10-07 06:29] LABS: ALBUMIN 3.2 gm/dl (3.1-4.5); POTASSIUM 4.2 mmol/L (3.5-5.1)
[2020-10-07 06:41] LABS: CREATININE 2.3 mg/dL (0.70-1.30); THYROID STIM HORMONE (HS) 1.26 uIU/ml (0.358-4.75)
[2020-10-07 07:28] LABS: VITAMIN D, 25-HYDROXY 41.5 ng/mL (30-100)
[2020-10-07 07:47] VITALS: BP 118/78
[2020-10-07 12:56] LABS: BASO % 0.5 % (0.0-1.0); EOS # 0.2 10*3/uL (0.0-0.4); EOS % 2.8 % (1.0-4.0); LYMPH # 1.2 10*3/uL (1.3-4.4); MEAN CELL VOLUME 99.7 fl (80.0-94.0); MEAN CORPUSCULAR HGB 29.9 pg (27.0-31.0); MEAN PLATELET VOLUME 11.2 fl (9.6-12.3); MONO # 0.5 10*3/uL (0.1-1.0); MONO % 7.4 % (3.0-9.0); NEUT # 4.4 10*3/uL (2.3-7.9); PLATELET COUNT AUTOMATED 126 10*3/uL (130-400); RED BLOOD COUNT 3.21 10*6/uL (4.50-5.90); RED CELL DISTRI WIDTH 19.1 % (0-14.5); WHITE BLOOD COUNT 6.3 10*3/uL (4.8-10.8)
[2020-10-07 13:13] LABS: ALBUMIN 2.7 gm/dl (3.1-4.5); CREATININE 2.46 mg/dL (0.70-1.30); POTASSIUM 4.7 mmol/L (3.5-5.1); TOTAL PROTEIN 6.4 gm/dL (6.4-8.2)
[2020-10-07 13:15] LABS: TROPONIN I 0.174 ng/ml (<0.045)
[2020-10-07] MEDS ORDERED: GLUCOTROL5 MG PO (14:25)
[2020-10-07] MEDS ORDERED: LASIX40 MG PO (14:26)
[2020-10-07] MEDS ORDERED: MILLIPRED5 MG PO (14:26)
[2020-10-07] MEDS ORDERED: CIPRO500 MG PO (14:34)
[2020-10-07] MEDS ORDERED: ASPIRIN CHEWABL81 MG PO (14:35)
== END 2020-10-07 12:55 | disposition short-term general hospital (02) | DRG 885 ==
LOC: ED 17:18 → 3N 21:31
PROVIDERS: Emergency Medicine; Student in an Organized Health Care Education/Training Program; ADMIT Psychiatry & Neurology Psychiatry; ATTEND Psychiatry & Neurology Psychiatry
DX: F32.1 Major depressive disorder, single episode, moderate (principal); N18.30 Chronic kidney disease, stage 3 unspecified; R45.851 Suicidal ideations; F41.9 Anxiety disorder, unspecified; E11.22 Type 2 diabetes mellitus with diabetic chronic kidney disease; I25.10 Atherosclerotic heart disease of native coronary artery without angina pectoris; G40.909 Epilepsy, unspecified, not intractable, without status epilepticus; E78.2 Mixed hyperlipidemia; E11.51 Type 2 diabetes mellitus with diabetic peripheral angiopathy without gangrene; I12.9 Hypertensive chronic kidney disease with stage 1 through stage 4 chronic kidney disease, or unspecified chronic kidney disease; Z20.828 Contact with and (suspected) exposure to other viral communicable diseases; F41.1 Generalized anxiety disorder; Z88.2 Allergy status to sulfonamides; Z95.820 Peripheral vascular angioplasty status with implants and grafts; Z82.49 Family history of ischemic heart disease and other diseases of the circulatory system; Z83.3 Family history of diabetes mellitus; Z82.3 Family history of stroke; Z87.442 Personal history of urinary calculi

== ENCOUNTER 2020-10-07 13:59 | Inpatient (IN) | payer OTHER ==
[~2020-10-07] VITALS: Ht 175.3 cm; Wt 69.9 kg
[2020-10-07] VITALS (8 sets, daily range): BP systolic 40–143; BP diastolic 0–80
--- NOTE | 2020-10-07 13:00 | NUR ---
A 75 YEAR OLD MALE PATIENT, admitted to ICCU, under the services of BRIDGET Dallas MD with a diagnosis of POST RAPID RESPONSE/HYPOTENSION. Chief complaint is WAS A RAPID RESPONSE IN BHU, LOW BP, LOW HR, LETHARGIC. Patient arrived via CART WITH RN from ER. Monitor applied. Initial assessment completed. Vital signs taken and recorded. See assessment for past medical history, medications and allergies. Patient and/or family oriented to unit. [facility] Clothing/patient valuable form completed. LAILA MCCALLUM
--- NOTE | 2020-10-07 13:10 | NUR ---
DR DIANE UPDATED ON PTS ARRIVAL IN ICCU AND VS
--- NOTE | 2020-10-07 13:20 | NUR ---
YADY DIANE AWARE OF LA AND TROP LEVELS
--- NOTE | 2020-10-07 13:30 | NUR ---
DR GUERRA CONSULTED
--- NOTE | 2020-10-07 13:30 | NUR ---
IV started right forearm with #22 protective cath after 1 attempts. Site prepped with Chloroprep. Sterile dressing applied. Patient tolerated procedure well. IV infusing at 100 cc/hr. LAILA MCCALLUM
--- NOTE | 2020-10-07 14:00 | NUR ---
I SPOKE WITH [facility], AND [facility] AND THE DTR REGARDING THE PTS CORRECT HOME MEDS, PER PT HE USES 3 DIFFERENT PHARMACYS, ALL HOME MEDS ON HOLD
[2020-10-07] MEDS ORDERED: GLUCOTROL5 MG PO (14:25)
[2020-10-07] MEDS ORDERED: MILLIPRED5 MG PO (14:26)
[2020-10-07] MEDS ORDERED: LASIX40 MG PO (14:26)
[2020-10-07] MEDS ORDERED: CIPRO500 MG PO (14:34)
[2020-10-07] MEDS ORDERED: ASPIRIN CHEWABL81 MG PO (14:35)
--- NOTE | 2020-10-07 14:58 | NUR ---
Nursing screen received and chart was reviewed. Patient is a 75 y/o male admitted to U with depression and sucidal ideation. Rapid response team called on patient on 10/07/20 for low BP, HR and lethargic. Patient was transfered to ICCU. If patient has a decline in ADLs, transfers or functional mobility please send OT orders. Thank you. Teresita Albrecht OTR/L
--- NOTE | 2020-10-07 15:00 | NUR ---
BP SLOWLY IMPROVING PT REMAINS ASYMPT HAS BEEN INC OF MUSHY BM
--- NOTE | 2020-10-07 17:04 | NUR ---
BP SLOWLY IMPROVING, PT UNCOMFORTABLE IN THIS BED, AWAITING DR GUERRA
--- NOTE | 2020-10-07 18:49 | NUR ---
XANAX FOR ANXIETY
--- NOTE | 2020-10-07 18:56 | NUR ---
CHART CHECK COMPLETE.
--- NOTE | 2020-10-07 19:12 | NUR ---
XANAX NOT EFFECTIVE YET
--- NOTE | 2020-10-07 19:45 | NUR ---
VS TAKEN AND ASSESSMENT DONE. PT PLEASANT BUT INSISTENT UPON GETTING UP TO RECLINER CHAIR. HIS BP IMPROVED, HR 60/MIN, AND ASYMPTOMATIC. DENIES DIZZINESS. ASSISTED UP TO RECLINER CHAIR IN FRONT OF INSIDE ROOM WINDOW SO THAT HE IS IN MY VIEW AT ALL TIMES. HIS CALL LIGHT IS IN HIS LAP. IVF CONTINUE AT 100CC/HR.
--- NOTE | 2020-10-07 20:25 | NUR ---
PT EATING PM SNACK OF APPLESAUCE.
--- NOTE | 2020-10-07 20:35 | NUR ---
ASSISTED BACK TO BED. CALL LIGHT IN REACH. BED EXIT ALARM ON.
--- NOTE | 2020-10-07 22:34 | NUR ---
PT AWOKE, CONFUSED TO PLACE. REORIENTED TO PLACE AND REASON FOR ICU MONITORING. PT PLEASANT. DEV CARE DONE FOR INCONTINENCE OF SMALL AMT BROWN MUSHY STOOL. POSITIONED FOR COMFORT. BED EXIT ALARM ON.
[2020-10-08] VITALS (9 sets, daily range): BP systolic 73–90; BP diastolic 33–51
--- NOTE | 2020-10-08 02:22 | NUR ---
PT CURLED UP ON HIS SIDE. SLEEPING. SKIN W/D. REMAINS SINUS HENNY UPPER 40'S TO 50'S.
--- NOTE | 2020-10-08 03:54 | NUR ---
DEV CARE DONE FOR INCONTINENCE OF BROWN LOOSE, STICKY STOOL. ASSESSMENT/VS DONE. PT IS ORIENTED TO PERSON AND PLACE BUT UNSURE OF TIME.
[2020-10-08 05:47] LABS: CREATININE 3.61 mg/dL (0.70-1.30)
[2020-10-08 05:50] LABS: POTASSIUM 6.4 mmol/L (3.5-5.1)
--- NOTE | 2020-10-08 06:01 | NUR ---
DR DIANE NOTIFIED OF K+6.4. ORDERS RECEIVED.
--- NOTE | 2020-10-08 06:29 | NUR ---
PERICARE DONE FOR INCONTINENCE OF BOTH URINE AND LIQUID STOOL.
[2020-10-08 06:33] LABS: HEMATOCRIT 31.8 % (42.0-52.0); MEAN CORPUSCULAR HGB 30.2 pg (27.0-31.0); MEAN CORPUSCULAR HGB CONC 30.2 g/dl (33.0-37.0); NUCLEATED RED BLOOD CELL 0.1 10*3/uL (0.0-0.0); NUCLEATED RED BLOOD CELL 0.7 % (0.0-0.0); RED BLOOD COUNT 3.18 10*6/uL (4.50-5.90); RED CELL DISTRI WIDTH 19.1 % (0-14.5)
--- NOTE | 2020-10-08 06:39 | NUR ---
PER DR GUERRA, DR HENNING WILL SEE PT TODAY.
--- NOTE | 2020-10-08 06:45 | NUR ---
UPDATED DR DIANE ON PT CONDITION AND THAT AMP D50 AND REG INSULIN GIVEN AT 0615 FOR K 6.4. INFORMED HER OF BUN AND CREAT INCREASE AND LAST BP MEASUREMENT. WILL CONSULT DR ROBERTSON.
[2020-10-08 06:48] LABS: PLATELET COUNT AUTOMATED 18 10*3/uL (130-400)
--- NOTE | 2020-10-08 06:56 | NUR ---
DR ROBERTSON'S ANSWERING SERVICE GIVEN INFORMATION AND CALL BACK NUMBER FOR CONSULT NOTIFICATION.
--- NOTE | 2020-10-08 06:59 | NUR ---
DR DIANE NOTIFIED OF CRITICAL PLT COUNT 18. ORDERS RECEIVED.
[2020-10-08 07:02] LABS: PLATELET SUFFICIENCY LOW (NORMAL); TOTAL CELLS COUNTED 100 #CELLS
[2020-10-08 08:35] LABS: CREATININE 3.64 mg/dL (0.70-1.30)
[2020-10-08 08:40] LABS: POTASSIUM 5.4 mmol/L (3.5-5.1)
--- NOTE | 2020-10-08 09:03 | NUR ---
DR. ASHRAF CALLED AND NOTIFIED OF CONSULT. NEW ORDERS RECEIVED
--- NOTE | 2020-10-08 11:00 | NUR ---
RIGHT [facility]CLAVIAN MEDIPORT ACCESSED WITHOUT DIFFICULTY.
--- NOTE | 2020-10-08 11:20 | NUR ---
6 PACK PLATELETS HUNG
[2020-10-08 11:24] LABS: BILIRUBIN Negative (Negative); BLOOD 2+ (Negative); CLARITY Turbid (Clear); COLOR Dark Yellow (Yellow); GLUCOSE Negative (Negative); KETONE Trace (Negative); LEUKO ESTERASE 3+ (Negative); NITRITE Negative (Negative); PH 5.5 (4.5-8.0); SPECIFIC GRAVITY 1.015 (1.001-1.030)
[2020-10-08 11:25] LABS: CREATININE 3.52 mg/dL (0.70-1.30); POTASSIUM 5.3 mmol/L (3.5-5.1)
[2020-10-08 11:40] LABS: WBC TNTC wbc/hpf (0-5)
[2020-10-08 11:57] LABS: URINE CREATININE RANDOM 92.1 mg/dL
--- NOTE | 2020-10-08 16:00 | NUR ---
DR. MEJIA HERE TO SEE PATIENT. NOTIFIED OF BP 74-82 SYSTOLIC. SKIN WARM AND DRY. PULSE OX 93% ON ROOM AIR. NSR ON HEART MONITOR. HR 70-80'S. NS CONTINUES AT 100CC/HR VIA [facility] MEDIPORT
[2020-10-08 16:14] LABS: CREATININE 3.59 mg/dL (0.70-1.30)
--- NOTE | 2020-10-08 18:00 | NUR ---
UP TO VOID IN URINAL. BRIEF HAS MODERATE AMOUNT BRIGHT RED COLORED IN BACK. WIPED AND HAS SMALL AMOUNT BRIGHT RED ON PAPER
--- NOTE | 2020-10-08 19:05 | NUR ---
MEDICATED WITH XANAX 0.25MG PO ORDERED FOR ANXIETY
--- NOTE | 2020-10-08 19:34 | NUR ---
DR. ASHRAF'S ANSWERING SERVICE NOTIFIED OF ELEVATED LACTIC ACID LEVEL.
--- NOTE | 2020-10-08 19:47 | NUR ---
IN TO ASSESS PATIENT. PATIENT ALERT AND ORIENTED AND PLEASANT AND COOPERATIVE. SITTING UP IN CHAIR EATING SNACK. PATIENT HAS NO COMPLAINTS AT THIS TIME. BUT STATES HE HAS A LOT GOING ON WITH HIM RIGHT NOW. CALL LIGHT BO MIRZA, WILL MONITOR
--- NOTE | 2020-10-08 20:36 | NUR ---
PATIENT SLEEPING IN CHAIR. NO DISTRESS NOTED. CALL LIGHT WITHIN REACH
--- NOTE | 2020-10-08 21:50 | NUR ---
PATIENT ASSISTED TO RESTROOM AT THIS TIME.
--- NOTE | 2020-10-08 22:39 | NUR ---
24 HR chart check completed.
--- NOTE | 2020-10-08 23:45 | NUR ---
ASSISTED PATIENT INTO BED. VITALS TAKEN. IV FLUIDS INFUSING PER ORDER. CALL LIGHT WITHIN REACH, WILL MONITOR
[2020-10-09] VITALS: BP 86/50
--- NOTE | 2020-10-09 00:25 | NUR ---
PATIENT SLEEPING, NO DISTRESS NOTED. BREATHING IS EASY AND REGULAR. IV FLUIDS INFUSING
--- NOTE | 2020-10-09 01:05 | NUR ---
ASSISTED PATIENT UP TO BATHROOM. PATIENT INSISTANT ON USING ACTUAL TOILET AND NOT BEDSIDE COMMODE. UNABLE TO MEASURE OUTPUT. CALL LIGHT WITHIN REACH, WILL MONITOR
--- NOTE | 2020-10-09 02:36 | NUR ---
PATIENT SLEEPING, NO DISTRESS NOTED. CALL LIGHT WITHIN REACH, WILL MONITOR
[2020-10-09 04:00] VITALS: BP 103/56
[2020-10-09 06:13] LABS: BASO % 0.2 % (0.0-1.0); EOS # 0.1 10*3/uL (0.0-0.4); EOS % 1.1 % (1.0-4.0); HEMATOCRIT 26.5 % (42.0-52.0); LYMPH # 0.6 10*3/uL (1.3-4.4); LYMPH % 9.4 % (27.0-41.0); MEAN CELL VOLUME 97.4 fl (80.0-94.0); MEAN CORPUSCULAR HGB 29.8 pg (27.0-31.0); MEAN CORPUSCULAR HGB CONC 30.6 g/dl (33.0-37.0); MONO # 0.3 10*3/uL (0.1-1.0); NEUT # 5.3 10*3/uL (2.3-7.9); NEUT % 84.8 % (47.0-73.0); NUCLEATED RED BLOOD CELL 0.1 10*3/uL (0.0-0.0); RED BLOOD COUNT 2.72 10*6/uL (4.50-5.90); RED CELL DISTRI WIDTH 19.1 % (0-14.5); WHITE BLOOD COUNT 6.3 10*3/uL (4.8-10.8)
[2020-10-09 06:20] LABS: PLATELET COUNT AUTOMATED 60 10*3/uL (130-400)
[2020-10-09 06:31] LABS: POTASSIUM 4.7 mmol/L (3.5-5.1)
[2020-10-09 06:39] LABS: CREATININE 3.19 mg/dL (0.70-1.30)
--- NOTE | 2020-10-09 06:47 | NUR ---
PRN DEXTROSE GIVEN FOR BLOOD SUGAR OF 62.
--- NOTE | 2020-10-09 07:40 | NUR ---
ASSISTED TO BATHROOM. INCONTINENT OF SMALL AMOUNT BROWN/PINK TINGED MUCOID STOOL IN BRIEF. PLACED BACK TO CHAIR. BREAKFAST ORDERED. BP 97/51
[2020-10-09 08:00] VITALS: BP 97/51
--- NOTE | 2020-10-09 11:23 | NUR ---
DR. THRASHER NOTIFIED OF CONSULT
[2020-10-09 12:00] VITALS: BP 110/62
[2020-10-09 16:00] VITALS: BP 106/52
[2020-10-09 17:18] LABS: MEAN CELL VOLUME 97.6 fl (80.0-94.0); MEAN CORPUSCULAR HGB 30.3 pg (27.0-31.0); MEAN CORPUSCULAR HGB CONC 31.1 g/dl (33.0-37.0); MEAN PLATELET VOLUME 12.5 fl (9.6-12.3); NUCLEATED RED BLOOD CELL 0.1 10*3/uL (0.0-0.0); NUCLEATED RED BLOOD CELL 1.8 % (0.0-0.0); PLATELET COUNT AUTOMATED 59 10*3/uL (130-400); RED BLOOD COUNT 2.87 10*6/uL (4.50-5.90); RED CELL DISTRI WIDTH 19.3 % (0-14.5); WHITE BLOOD COUNT 6.2 10*3/uL (4.8-10.8)
[2020-10-09 17:37] LABS: TOTAL CELLS COUNTED 100 #CELLS
[2020-10-09 17:38] LABS: PLATELET SUFFICIENCY LOW (NORMAL)
[2020-10-09 20:00] VITALS: BP 103/56
--- NOTE | 2020-10-09 20:48 | NUR ---
CHANGED PATIENT BRIEF DUE TO DIARRHEA PATIENT VERY APOLOGETIC KEPT SAYING SORRY. I SAID THERE WAS NO NEED TO BE SORRY AND SOMETIMES WHEN YOUR NOT FEELING WELL THESE THINGS HAPPEN. PATIENT ALSO DID NOT LET ME INSERT SUPPOSITORY HE DID DO IT HIMSELF THOUGH.
--- NOTE | 2020-10-09 21:10 | NUR ---
PATIENT HAS NOT BEEN EATING NO COVERAGE GIVEN FOR BLOOD GLUCOSE 161 PATIENT DID NOT EAT SNACK AND DOES NOT WANT ANYTHING ELSE AT THIS TIME.
--- NOTE | 2020-10-09 21:11 | NUR ---
PATIENT GIVEN XANAX FOR ANXIOUSNESS. PER PATIENT REQUEST ALSO.
[2020-10-10] VITALS: BP 100/61
[2020-10-10 04:00] VITALS: BP 110/68
[2020-10-10 06:05] LABS: HEMATOCRIT 27.4 % (42.0-52.0); MEAN CELL VOLUME 98.9 fl (80.0-94.0); MEAN CORPUSCULAR HGB 30.3 pg (27.0-31.0); MEAN CORPUSCULAR HGB CONC 30.7 g/dl (33.0-37.0); MEAN PLATELET VOLUME 12.3 fl (9.6-12.3); NUCLEATED RED BLOOD CELL 0.1 10*3/uL (0.0-0.0); NUCLEATED RED BLOOD CELL 1.1 % (0.0-0.0); PLATELET COUNT AUTOMATED 51 10*3/uL (130-400); RED BLOOD COUNT 2.77 10*6/uL (4.50-5.90); WHITE BLOOD COUNT 4.8 10*3/uL (4.8-10.8)
[2020-10-10 07:21] LABS: OVALOCYTES FEW; PLATELET SUFFICIENCY LOW (NORMAL); TOTAL CELLS COUNTED 100 #CELLS
[2020-10-10 08:00] VITALS: BP 109/75
--- NOTE | 2020-10-10 08:17 | NUR ---
SPOKE WITH DR THRASHER REGARDING PLAN OF CARE. PATIENT PALNNED ON GOING FOR EDG/COLO. GIVE TAP WATER ENEMA UNTIL CLEAR. PLATELETS TO REMAIN ON HOLD AND WILL BE GIVEN PRIOR TO EGD/COLO.
--- NOTE | 2020-10-10 08:38 | NUR ---
DR. DIANE IN TO SEE PATIENT. PLAN OF CARE DISCUSSED. IV FLUIDS D/C AT THIS TIME.
--- NOTE | 2020-10-10 09:08 | NUR ---
[facility] NOTIFIED OF MERLIN CONSULT. PATIENT MEDICALLY STABLE AT THIS TIME AND CAN BE MOVED BACK TO [facility] IF DEEMED NECESSARY BY DR. BOYER.
--- NOTE | 2020-10-10 09:30 | NUR ---
Blister Packing Machine Tender in to talk to patient. Patient states lives at home with his and daughter. There are 0 steps in the home. Physician: Dr. Di Matson Pharmacy: [facility] Home health services: would like [facility] on discharge Patient's level of ADLs: INDEPENDENT Patient has working utilities: yes DME: O2 @ 3-3.5L nc, portable O2 tank, nebulizer, O2 supplier [facility] Follow-up physician's appointment after d/c: he prefers to make his own follow up appt after discharge Does patient want to access PORTAL?: no Discharge plan discussed with patient. He is sitting on the edge of his bed. He lives at home with his family. He is independent in his ADLs and ambulation. Discussed going back over to U vs home. He states he doesn't want to go back to U. He states he thinks being in the confined spaces is making him worse. He would like to return home. Discussed home health care services and he is agreeable. When provided with a list of agencies he chose [facility]. When medically stable he will be discharged to home with [facility] services. He states his daughter, Arlette, will provide transportation on discharge. MOE HINES
--- NOTE | 2020-10-10 11:55 | NUR ---
PHYSICAL THERAPY Nursing screen received and chart reviewed. Patient admitted to U and then transferred to medical floor for further care. Recommend skilled PT evaluation if decline in functional mobility presents. Thank you. Gely Herrmann,PT,DPT
[2020-10-10 12:00] VITALS: BP 110/72
--- NOTE | 2020-10-10 12:01 | NUR ---
DR. GUERRA IN TO SEE PATIENT. NOTES AN EFFUSION ON PATIENTS LEFT SIDE AND EDEMA BLE. ORDERS RECEIVED TO GET A CXR AND AN ECHO.
[2020-10-10 14:00] LABS: ALBUMIN 2.7 gm/dl (3.1-4.5); CREATININE 2.82 mg/dL (0.70-1.30); POTASSIUM 4.4 mmol/L (3.5-5.1); TOTAL PROTEIN 5.7 gm/dL (6.4-8.2)
[2020-10-10 16:00] VITALS: BP 109/75
[2020-10-10 20:00] VITALS: BP 104/66
[2020-10-11] VITALS: BP 97/68
[2020-10-11 06:11] LABS: HEMATOCRIT 27.9 % (42.0-52.0); MEAN CELL VOLUME 98.2 fl (80.0-94.0); MEAN CORPUSCULAR HGB 29.9 pg (27.0-31.0); MEAN CORPUSCULAR HGB CONC 30.5 g/dl (33.0-37.0); NUCLEATED RED BLOOD CELL 0.1 10*3/uL (0.0-0.0); NUCLEATED RED BLOOD CELL 2.3 % (0.0-0.0); PLATELET COUNT AUTOMATED 49 10*3/uL (130-400); RED BLOOD COUNT 2.84 10*6/uL (4.50-5.90); RED CELL DISTRI WIDTH 18.8 % (0-14.5); WHITE BLOOD COUNT 4.3 10*3/uL (4.8-10.8)
[2020-10-11 06:12] LABS: ALBUMIN 2.5 gm/dl (3.1-4.5); CREATININE 2.47 mg/dL (0.70-1.30); POTASSIUM 4.2 mmol/L (3.5-5.1); TOTAL PROTEIN 5.4 gm/dL (6.4-8.2)
[2020-10-11 06:39] LABS: OVALOCYTES FEW; PLATELET SUFFICIENCY LOW (NORMAL); TOTAL CELLS COUNTED 100 #CELLS
--- NOTE | 2020-10-11 07:49 | NUR ---
DR. HENNING IN TO SEE PATIENT AND DISCUSS PLAN OF CARE.
[2020-10-11 08:00] VITALS: BP 94/56
--- NOTE | 2020-10-11 08:45 | NUR ---
CM in to see patient. No new needs or request at this time. Discussed going back over to [facility] and he thinks he would rather go home. He remains agreeable to [facility] services. When medically stable he will be discharged to home with [facility] services.
[2020-10-11 12:00] VITALS: BP 102/57
--- NOTE | 2020-10-11 12:15 | NUR ---
PHYSICAL THERAPY Physical Therapy evaluation completed in ICCU with full evaluation to follow. Recommend physical therapy per plan of care, pt would benefit from SNF to return to [facility] pending progress but pt prefers to return home would recomend 24 hr care/assist w full HH services see full evaluation. Thank you for this referral. Phuong Taveras PT
--- NOTE | 2020-10-11 12:23 | NUR ---
Faxed home health referral to [facility] along with face to face and clinical
[2020-10-11 16:00] VITALS: BP 109/51
--- NOTE | 2020-10-11 17:43 | NUR ---
SPOKE WITH DR. DIANE REGARDING LIVER US REPORT. PATIENT CONDITION REVIEWED. NO FURTHER ORDERS AT THIS TIME.
[2020-10-11 20:00] VITALS: BP 102/45
[2020-10-12] VITALS: BP 119/69
--- NOTE | 2020-10-12 05:10 | NUR ---
PATIENT TRANSFERRED TO [facility]. PATIENT VOICED NO NEEDS AT THIS TIME
[2020-10-12 07:34] LABS: HEMATOCRIT 29.3 % (42.0-52.0); MEAN CORPUSCULAR HGB 30.1 pg (27.0-31.0); MEAN CORPUSCULAR HGB CONC 30.7 g/dl (33.0-37.0); MEAN PLATELET VOLUME 11.8 fl (9.6-12.3); NUCLEATED RED BLOOD CELL 0.1 10*3/uL (0.0-0.0); NUCLEATED RED BLOOD CELL 1.1 % (0.0-0.0); PLATELET COUNT AUTOMATED 50 10*3/uL (130-400); RED BLOOD COUNT 2.99 10*6/uL (4.50-5.90); RED CELL DISTRI WIDTH 19.3 % (0-14.5); WHITE BLOOD COUNT 4.4 10*3/uL (4.8-10.8)
[2020-10-12 07:58] LABS: ALBUMIN 2.5 gm/dl (3.1-4.5); CREATININE 2.16 mg/dL (0.70-1.30); POTASSIUM 4.2 mmol/L (3.5-5.1); TOTAL PROTEIN 5.7 gm/dL (6.4-8.2)
[2020-10-12 08:00] VITALS: BP 106/54
--- NOTE | 2020-10-12 08:30 | NUR ---
IS AWARE OF LAB RESULTS. OK TO DISCHARGE HOME.
[2020-10-12] MEDS ORDERED: MIRTAZAPINE30 M2 PO (08:35)
[2020-10-12] MEDS ORDERED: Anusol Hc,Anuco25 MG R (08:35)
[2020-10-12] MEDS ORDERED: FLAGYL500 MG PO (08:36)
[2020-10-12 08:39] LABS: BASOPHILS 2 % (0-1); PLATELET SUFFICIENCY LOW (NORMAL); POLYCHROMASIA SLIGHT; TOTAL CELLS COUNTED 100 #CELLS
--- NOTE | 2020-10-12 10:25 | NUR ---
PHYSICAL THERAPY Patient supine in bed upon arrival and agreeable to skilled PT services. Patient identified via name, . Patient alert and oriented x3, with no complaints this date. Patient performed bed mobility with SBA to sit EOB. Patient stood at EOB x1 with SBA, and then sat down to don pants independently. Patient gait trained in room 10'x1, 20'x2, 30'x1 with FWW and SBA for safety. Patient denies dizziness and no LOB noted this date. Patient performed TUG testing with FWW = 23 seconds with SBA, and 5x sit to stand = 21 seconds with one UE assist, indicating increased risk for falls. Patient performed seated therapeutic exercises including marching and LAQ, 2x10. Transfer on/off commode, and standing at sink to wash hands with SBA. At end of session, patient returned to sitting in standard chair near window. Patient comfortable, call tolentino within reach. Plan to discharge home this date. Recommend home health PT services to improve balance, safety, gait, and overall functional mobility. Total treatment time = 25 mintues. (1 Therapeutic exercise; 1 Gait) Thank you. Gely Herrmann,PT,DPT
--- NOTE | 2020-10-12 11:33 | NUR ---
IV LASIX WAS NOT GIVEN DUE TO MEDIPORT DEACCESSED - PT GOING HOME. PAGED NEPHRO TO SEE IF WE COULD GIVE PO
--- NOTE | 2020-10-12 11:46 | NUR ---
Faxed discharge instructions to [facility]
[2020-10-12 12:00] VITALS: BP 112/59
--- NOTE | 2020-10-12 15:10 | NUR ---
Discharge instructions reviewed with patient/family. Patient receptive and verbalizes understanding. Follow-up care arranged. Written instructions given to patient/family. PT AWARE TO PICK PRESCRIPTIONS UP AT PHARMACY. CLARICE DEACCESSED. PATIENT TAKEN OFF FLOOR VIA WHEELCHAIR. NOAH FRY
--- NOTE | 2020-10-13 08:13 | NUR ---
PHYSICAL THERAPY CO-SIGN I approve of the Physical Therapy notes written above. Phuong Taveras PT
--- NOTE | 2020-10-14 07:18 | NUR ---
Received message from Vivian at [facility] patient refused home health care services.
== END 2020-10-12 15:56 | disposition home or self-care (01) | DRG 314 ==
LOC: ICCU 13:59 → 4E 10-12 05:06
PROVIDERS: Internal Medicine; Internal Medicine Nephrology; ADMIT Internal Medicine; ATTEND Internal Medicine
PROC: 30233R1 Transfusion of Nonautologous Platelets into Peripheral Vein, Percutaneous Approach (ICD-10-PCS; principal; 2020-10-08)
PROC: 02HV33Z Insertion of Infusion Device into Superior Vena Cava, Percutaneous Approach (ICD-10-PCS; 2020-10-10)
DX: I95.9 Hypotension, unspecified (principal); D61.810 Antineoplastic chemotherapy induced pancytopenia; N17.0 Acute kidney failure with tubular necrosis; C85.10 Unspecified B-cell lymphoma, unspecified site; K92.2 Gastrointestinal hemorrhage, unspecified; D62 Acute posthemorrhagic anemia; F32.2 Major depressive disorder, single episode, severe without psychotic features; N39.0 Urinary tract infection, site not specified; K80.00 Calculus of gallbladder with acute cholecystitis without obstruction; E44.0 Moderate protein-calorie malnutrition; N18.32 Chronic kidney disease, stage 3b; I12.9 Hypertensive chronic kidney disease with stage 1 through stage 4 chronic kidney disease, or unspecified chronic kidney disease; E87.6 Hypokalemia; R74.01 Elevation of levels of liver transaminase levels; D50.9 Iron deficiency anemia, unspecified; D63.8 Anemia in other chronic diseases classified elsewhere; R62.7 Adult failure to thrive; F41.9 Anxiety disorder, unspecified; Z88.2 Allergy status to sulfonamides; Z90.49 Acquired absence of other specified parts of digestive tract; Z79.899 Other long term (current) drug therapy; Z68.22 Body mass index [BMI] 22.0-22.9, adult; Z92.21 Personal history of antineoplastic chemotherapy; Z82.49 Family history of ischemic heart disease and other diseases of the circulatory system